=== PATIENT | female | born 1970 | race Caucasian/White ===

== ENCOUNTER 2017-06-12 13:17 | Day surgery (SDC) | payer OTHER ==
[2017-06-10 12:30] VITALS: BMI 29.2
[2017-06-12] MEDS ORDERED: MIDAZOLAM HCL 2 MG/2 ML SINGLE DOSE VIAL ONE (13:47)
[2017-06-12] MEDS ORDERED: LIDOCAINE HCL/PF 2% SDV 5ML VIAL ONE (14:29)
[2017-06-12] MEDS ORDERED: ceFAZolin SODIUM 1 GM VIAL ONE (14:29)
[2017-06-12] MEDS ORDERED: DEXAMETHASONE SOD PHOSPHATE 4 MG/1 ML VIAL ONE (14:29)
[2017-06-12] MEDS ORDERED: ceFAZolin SODIUM 1 GM VIAL IVPB ONE (14:30)
[2017-06-12] MEDS ORDERED: PROPOFOL 20 ML ONE (14:31)
[2017-06-12] MEDS ORDERED: PROMETHAZINE HCL 25 MG/1 ML VIAL IVPUSH PRN (14:43)
[2017-06-12] MEDS ORDERED: oxyCODONE HCL 5 MG TABLET PO PRN (14:43)
[2017-06-12] MEDS ORDERED: ONDANSETRON 4 MG/2 ML VIAL IVPUSH PRN (14:43)
[2017-06-12] MEDS ORDERED: LACTATED RINGERS SOLUTION 1,000 ML IV SCH (14:45)
[2017-06-12] MEDS ORDERED: KETOROLAC TROMETHAMINE 30 MG/1 ML VIAL ONE (14:54)
--- NOTE | 2017-06-12 15:19 | OP ---
Operative Note - Note: Operative Date: 06/12/17 Pre-Operative Diagnosis: Menorrhagia, endometrial polyp, uterine fibroid(s) Operation: Hysteroscopy, D&C Findings: Normal uterine cavity. Post-Operative Diagnosis: Other (Menorrhagia, normal uterine cavity w/o polyp) Surgeon: Bryant Longo Anesthesiologist/STENCIL PRINTER: Jose Montiel Anesthesia: General Specimens Removed: Endometrial curettings Estimated Blood Loss (mls): 30 Blood Volume Replaced (mls): 0 Fluid Volume Replaced (mls): 500 Operative Report Dictated: Yes
--- NOTE | 2017-06-12 16:11 | OP ---
DATE OF OPERATION: 06/12/2017 PREOPERATIVE DIAGNOSES: Menorrhagia, endometrial polyp, uterine fibroid. POSTOPERATIVE DIAGNOSES: Menorrhagia, normal uterine cavity without fibroids or polyps noted within the cavity. SURGERY: Hysteroscopy, dilatation and curettage. SURGEON: Bryant Longo MD DEPORTATION EXAMINER: None. ANESTHESIOLOGIST: Jose Montiel MD ANESTHESIA: General. COMPLICATIONS: None. IV FLUIDS: 500 mL. ESTIMATED BLOOD LOSS: 30 mL. PATHOLOGY: Endometrial curettings. FINDINGS: Examination under anesthesia revealed a small anteverted uterus with no pelvic or adnexal masses. Hysteroscopy revealed a normal uterine cavity with no lesions, no submucosal fibroids or endometrial polyps were noted. PROCEDURE: The patient was met preoperatively. Risks, benefits, and alternatives of surgery were discussed in detail. All questions were answered. The patient was then brought to the OR with the IV running. She was placed on the surgical table in a supine position. The patient's anesthesia was achieved without difficulty. The patient was then placed in a dorsal lithotomy position using adjustable Rubio stirrups. She was examined under anesthesia and noted to have a small anteverted uterus with no pelvic or adnexal masses. The timeout procedure was conducted as per standard protocol. The patient was then prepped and draped in the usual sterile fashion. A weighted speculum was introduced inside the vagina. The cervix was grasped with a single-tooth tenaculum. The cervical os was dilated to accommodate a size 21 Mena dilator. A 5-mm hysteroscope was then introduced into the uterine cavity. The uterine cavity appeared to be normal. No lesions were observed. There were no submucosal fibroids or endometrial polyps. Both fallopian tube ostia were visualized. The hysteroscope was then removed. Endometrial curettage was then performed and tissue submitted to Pathology for evaluation. Once this was completed, all of the instruments were removed from the patient. Good hemostasis was noted. Sponge, lap, instrument counts were correct. The patient was returned to supine position. She was transferred to recovery room awake and in stable condition. Raquel MENDOZA/[id number]
[2017-06-12 17:53] VITALS: BP 136/70; PULSE 74; TEMP 98
--- NOTE | 2017-06-14 10:30 | PATH ---
Surgical Pathology Report Patient Name: HORTENCIA SIMMONS [facility]. Rec. #: [id number] /Age/Gender: 1970 (Age: 47) / F Account: [id number] Location: [facility] SUR[facility]ICAL Taken: 06/12/2017 Received: 06/13/2017 Reported: 06/14/2017 Physicians: Bryant Longo M.D. Specimen(s) Received ENDOMETRIAL CURETTINGS Clinical History Fibroid uterus, polyps corpus uteri, dysmenorrhea Final Diagnosis ENDOMETRIUM, CURETTING: SECRETORY ENDOMETRIUM WITH AREAS SUGGESTIVE OF BENIGN ENDOMETRIAL POLYP, AND BENIGN MYOMETRIAL TISSUE. NO ENDOMETRIAL HYPERPLASIA OR CARCINOMA IDENTIFIED. Electronically Signed Freddy Mccann M.D. Gross Description Received in formalin labeled "endometrial curettings," is a 6.4 x 4.2 x 0.5 cm aggregate of carolina-brown soft tissue fragments admixed with blood clot. The formalin is filtered and the specimen is entirely submitted in 6 cassettes. /06/13/2017 [facility]06/13/2017
== END 2017-06-12 17:59 | disposition home or self-care (01) ==
LOC: JASU-SURG 13:17
PROVIDERS: ATTEND Obstetrics & Gynecology
PROC: 0UDB8ZX Extraction of Endometrium, Via Natural or Artificial Opening Endoscopic, Diagnostic (ICD-10-PCS; principal; 2017-06-12 14:30)
DX: N92.0 Excessive and frequent menstruation with regular cycle (principal)
CPT/HCPCS: 84703; 86850; 86900; 86901; 88305-TC; 94760

== ENCOUNTER 2024-01-16 13:27 | Emergency (ER) | payer SELFPAY ==
[2024-01-16 13:37] VITALS: BMI 30.9
[2024-01-16 15:58] VITALS: PULSE 83; TEMP 98.7
[2024-01-16 17:35] VITALS: BP 169/101; RESP 20
== END 2024-01-16 18:22 | disposition home or self-care (01) ==
LOC: JER 13:27
DX: G51.0 Bell's palsy (principal); I10 Essential (primary) hypertension; R53.1 Weakness; Z87.891 Personal history of nicotine dependence
CPT/HCPCS: 93005; 93010; 99283-25